=== PATIENT | male | born 1995 | race Caucasian/White ===

== ENCOUNTER 2025-03-02 12:33 | Outpatient (RCR) | payer OTHER, SELFPAY | END 2025-03-02 23:59 | disposition home or self-care (01) | LOC: HO.PHPA 12:33 | PROVIDERS: Visit Provider Psychiatry & Neurology Psychiatry | DX: F31.9 Bipolar disorder, unspecified (principal) ==

== ENCOUNTER → 2025-03-24 08:45 | Outpatient (BNV) | payer OTHER, SELFPAY | PROVIDERS: Visit Provider Psychiatry & Neurology Psychiatry | DX: F22 Delusional disorders (principal) | CPT/HCPCS: 99214 ==

== ENCOUNTER 2025-03-31 11:00 | Outpatient (RCR) | payer OTHER, SELFPAY ==
[2025-03-14 13:12] VITALS: BP 100/62; PULSE 60; TEMP 36.6
[2025-03-14 13:15] VITALS: BMI 25.4
--- NOTE | 2025-03-14 13:37 | PC.NURSE ---
Patient and I called his mother together to clarify PCP status as patient stated he thinks he has a PCP but would need to talk to his mother. Patients mother stated that he has a PCP with [facility] however she is in the process of changing his PCP to [facility] where his prescriber Michelle Brumfield is located as his prescriber requested he switch to [facility] or she will not be able to continue to see Umair. Patient's mother stated she called [facility] and was not able to get him an appointment until January 2026. I recommended his mother to schedule an appointment with Alvaro at the next available appointment and review this information with Michelle.
--- NOTE | 2025-03-14 14:06 | PC.ADMIT ---
Patient is a 29 year old single male who was referred to [facility] by his quartz cutter as patient is mandated to attend [facility] LOC. Patient was admitted to [facility] for treatment from 04/19/24-01/13/25. According to [facility] patient reportedly charged with attempted murder strangling his mother causing serious bodily harm. Court found him incompetent to stand trial. Patient also has a history of sending threatening emails to authorities, congressman, police, DA, and ADA. Patient reports he has paranoia against authority figures regarding persecution. Patient reports he is in the process of getting employment. He identified supports being his parents whom he is currently living with. Patient is currently alert and oriented x4. He is calm and cooperative. He presented with appropriate affect. He did not appear to be responding to internal stimuli. Thoughts are clear. He denied SI, no HI, no AH, no VH. He reports that others state he has paranoia against authority figures regarding persecution. He feels the Zyprexa medication has been helpful. He reports he is taking the medication as prescribed. He has an upcoming court case on March 23, 2025 to determine conditions of his release. He hopes he can move back to his apartment. Patient was given a copy of his safety plan if needed. Patient medications updated with patient and patient's pharmacy. Patient reports he is taking medications as prescribed. Patient reports a history of using Marijuana daily. Last use over a year ago.
--- NOTE | 2025-03-15 22:51 | P.HPPSP_ITS ---
[facility] Date of Service: 03/14/25 Chief Complaint: bipolar Sources of Information: patient interviewed, chart reviewed and crisis/core team assessment reviewed [facility] Narrative: Patient is a 29 yo male with history of Schizophrenia referred by his state's attorney who petitioned for court-mandated treatment at [facility] to gain coping skills. He was hospitalized in [place] for 10 months after being found incompetent to stand trials for attempted murder and aggravated assault of his mother back in 2019. Upon discharge he was sentanced to [facility] longterm, was incarcerated for 56 days and was just released 5 days ago. He notes having 2 open legal cases, more recently was charged with hassassment of the DA. Court has been really frustrating for the past 10 months... I'm here as a condition of release from longterm . I said I could legally kill him, was being sarcastic. In his response he said I wanted to kill my parents and him . But that is not what I said . He states things are going fine home with his parents who are supportive and adds that he is working through his legal issues ?I think things are going in the right direction?. He states he does not feel he needs to be here however he says he is agreeable to working the program and complying with conditions of his release. Past Psychiatric History: IPLOC x4: all hospitalizations were at [facility], most recent stay 10 months in total (including a 6 month committal for treatment, was on a Rizo Order which terminated upon discharge). Previous admissions were for 40 days, 40 days and 20 days (back in 2020). No outpatient treaters. He does not have a therapist, a psychiatrist or primary care physician. Previous medications: No previous trials aside from Adderall in the past. The Zyprexa is the 1st psychotropic medication has been prescribed. Has been on it since August 2024, when dose was fairly rapidly titrated from 5 mg to 30 mg while inpatient CURRENT MEDICATIONS: Olanzapine 30 mg q.h.s. [facility] Medical History (Updated 03/27/25 @ 06:55 by Pilar Gilman MD) No known health problems Narrative: Overall healthy Denies any chronic health conditions Denies any history of medical hospitalization for illness or injuries Denies any surgical history Denies any seizures Denies any concussions or TBI Height 6 ft Weight 184 lb Allergies no known drug allergies Diagnostics Vital Signs (24Hr): BMI result Body Mass Index 25.4 Meds/Allergies Meds Home Medications ?Medication ?Instructions ?Recorded ?Confirmed ?Type olanzapine 15 mg tablet 30 mg PO BEDTIME 03/14/25 History Allergies Allergies Allergy/AdvReac Type Severity Reaction Status Date / Time No Known Allergies Allergy Verified 03/14/25 13:11 Mental Status Exam Mental Status Exam Narrative: Alert, oriented, in no acute distress. Calm, cooperative, oddly related. No psychomotor agitation or neurovegetative retardation. Eye contact , fixed gaze. Mood anxious, affect constricted. Speech normal. Thought process linear, coherent. Thought content related to stressors, denies any hopelessness or SI. Denies any aggressive ideation or HI. Paranoid and Delusional content, less fixation, No AH, VH, does not appear internally preoccupied. Insight poor and judgment fair but adequate. Assessment & Plan Assessment & Plan (1) Delusional disorder: Status: Acute Code(s): F22 - Delusional disorders Plan Admit to [facility] VS reviewed: afebrile, BP 100/62; 60 bpm continue regular medications Patient expressed interest in lowering dose, however was agreeable to maintaining at current dose and was advised that this may be part of a longer discussion once he is connected with an outpatient psychiatric provider, for now denies any adverse effects Routine lab work as indicated EKG, routine for baseline QTc for medication considerations as indicated UDS as indicated [facility] reviewed Continue to monitor as per protocol Patient educated on: diagnosis and medication risk/benefits Informed Consent: understands Reason for continued partial hosp. stay Substantial Risk for: inability to function and med/psych decompensation Certification I certify that partial hospital treatment is medically necessary due to the symptoms and problems resulting from the patient's mental illness and the failure to treat the patient at the partial hospital level of care would likely result in the patient requiring inpatient psychiatric care which could not be prevented at a less intensive level of care. Time Spent With Patient Time: Total time managing care of this patient today ___90_ minutes.
--- NOTE | 2025-03-16 16:18 | HO.PHP ---
Clients case was opened and reviewed in teams today.
--- NOTE | 2025-03-17 12:56 | HO.PHP ---
PHP staff member faxed over a referral for med management and OP therapy to [facility]. PHP staff member is awaiting a phone call back with the appointment dates and times.
--- NOTE | 2025-03-24 18:02 | P.PNPSP_ITS ---
Subjective Subjective Date of Service: 03/24/25 Reason For Visit: bipolar Interim History: Patient seen for follow-up. Requesting letter of attendence for court which was filled out and left copy in chart.. Mood is doing positive . Denies any issues, has been med compliant. Energy, appetite and sleep are intact. Some frustrations stemming from court, but passes. He is looking forward to work. He denies any side effects has been taking his medication regularly. He later mentions interest in lowering the dose from 30 mg to 25 mg. Mentions constipation but says he does take Colace for this. Were coming to the end of his stay at [facility] and least for now is not practical to start making medication changes. He is agreeable to following up with his outpatient provider. He is not on a Rizo order. He denies any SI HI AH or VH. Diagnostics Vital Signs (24Hr): BMI result Body Mass Index 25.4 Assessment & Plan Assessment & Plan (1) Delusional disorder: Status: Acute Code(s): F22 - Delusional disorders Plan Continue PHP Continues to express interest in lowering dose of olanzapine but agrees to hold off changes for now, perhaps wait until he meets his oupatient provider continue regular medications Routine lab work as indicated EKG, routine for baseline QTc for medication considerations as indicated UDS as indicated VS reviewed: afebrile, BP 100/62; 60 bpm Continue to monitor as per protocol Certification I certify that partial hospital treatment is medically necessary due to the symptoms and problems resulting from the patient's mental illness and the failure to treat the patient at the partial hospital level of care would likely result in the patient requiring inpatient psychiatric care which could not be prevented at a less intensive level of care. Total time managing care of this patient today ____ minutes. Discharge Plan Discharge Attending provider: Pilar Gilman Additional Instructions: 03/30/2025? ?10:00 AM - 11:00 AM [facility] Adult Comprehensive Assessment-?in Person Prog: Outpatient Site: [address] [place] [address] Staff: Kathleen Honeycutt 05/03/2025? ? ?09:00 AM - 10:00 AM Psychiatric E/M New -?Telehealth v2 Prog: Psychiatric Services Site: [facility] Staff: CANDIE LEZAMA Medications: No Action olanzapine 15 mg tablet 30 mg PO BEDTIME Stand Alone Forms: Patient Portal Discharge page Print Language: Bahraini
--- NOTE | 2025-03-31 18:36 | HO.PHPPROGNO ---
Subjective Subjective Date of Service: 03/31/25 Reason For Visit: bipolar Interim History: Patient seen for follow-up, anticipating discharge at the end of program today.? Reports no acute issues or concerns. Medication compliant, medications well-tolerated. Denies any adverse effects.?He is still interested in having dose of olanzapine decreased but says he will wait to speak with outpatient provider as this would be part of a longer discussion and strategy Mood is stable.? Denies any hopelessness or SI. Denies thoughts of harming self or others at this time. Denies any aggressive ideation or HI. No delusional or paranoid content elicited, did not engage with triggering topics. Denies any AH or VH. Sleep, appetite, energy stable. Medication Compliance: Yes Side effects from medications: No Attending Groups: Yes Review of Systems Acute medical concerns: No Mental Status Exam Mental Status Exam Narrative: Alert, oriented, in no acute distress. Calm, cooperative. Mood stable, affect appropriate. Speech normal. Thought process linear, coherent, more goal-directed. Thought content related to stressors, future-oriented, denies any helplessness, hopelessness or SI.? No aggressive ideation or HI. No paranoia or delusional content elicited. No evidence of psychosis. Insight limited and judgment fair but adequate. Diagnostics Vital Signs (24Hr): BMI result Body Mass Index 25.4 Assessment & Plan Assessment & Plan (1) Delusional disorder: Status: Acute Code(s): F22 - Delusional disorders Plan Discharge from [facility] Continue regular medications Refills sent to pharmacy Will defer further medication management to outpatient provider *Safety plan reviewed *Discharge diagnoses, treatment course, discharge plan have been reviewed with patient (including medication regime, medication management, potential side effects) as well as treatment rationale were also revisited *Discharge paperwork signed and given to patient, copy sent for scanning to chart Patient educated on: diagnosis and medication risk/benefits Informed Consent: understands Reason for contiued partial hosp. stay Substantial Risk for: stable for discharge Certification I certify that partial hospital treatment is medically necessary due to the symptoms and problems resulting from the patient's mental illness and the failure to treat the patient at the partial hospital level of care would likely result in the patient requiring inpatient psychiatric care which could not be prevented at a less intensive level of care. Total time managing care of this patient today __30__ minutes. Discharge Plan Discharge Attending provider: Pilar Gilman Additional Instructions: 03/30/2025? ?10:00 AM - 11:00 AM [facility] Adult Comprehensive Assessment-?in Person Prog: Outpatient Site: [address] [place] [address] Staff: Kathleen Honeycutt 05/03/2025? ? ?09:00 AM - 10:00 AM Psychiatric E/M New -?Telehealth v2 Prog: Psychiatric Services Site: [facility] Staff: CANDIE LEZAMA Medications: Continued olanzapine 15 mg tablet 30 mg PO BEDTIME Stand Alone Forms: Patient Portal Discharge page Print Language: Singaporean
== END 2025-03-31 23:59 | disposition home or self-care (01) ==
LOC: HO.PHPA 11:00
PROVIDERS: Visit Provider Psychiatry & Neurology Psychiatry
DX: F22 Delusional disorders (principal); Z79.899 Other long term (current) drug therapy
CPT/HCPCS: 90791; 90853